=== PATIENT | male | born 1955 | race Caucasian/White ===

== ENCOUNTER 2018-03-23 08:28 | Day surgery (SDC) | payer OTHER ==
[~2018-03-23] VITALS: Ht 170.2 cm; Wt 80.8 kg
[~2018-03-23 08:28] MED LIST: Aspir 8181 MG PO; Coq-10100 MG PO; FISH OIL 1,0001 EAC1 PO; LISI5 PO; Lovastatin10 MG PO; OXYACE7.5T PO; PROM25 PO; Prinivil10 MG PO; RXOXYACE PO
--- NOTE | 2018-03-23 11:10 | NUR ---
03/23/18 1110 Susannah King IN RECOVERY WERE VIEWED BY MD VELA WHO WAS AT BEDSIDE. HE WAS FINE WITH THE BLOOD PRESSURES AND D/C TO HOME WITH NO FURTHER ORDERS. PT AWAKE AND TALKING, DENIES PAIN.
== END 2018-03-23 11:10 | disposition home or self-care (01) ==
LOC: ORSCSDS 08:28
PROVIDERS: Internal Medicine Gastroenterology
PROC: 0DBL8ZX Excision of Transverse Colon, Via Natural or Artificial Opening Endoscopic, Diagnostic (ICD-10-PCS; principal; 2018-03-23 09:45)
DX: Z12.11 Encounter for screening for malignant neoplasm of colon (principal); D12.3 Benign neoplasm of transverse colon; Z80.0 Family history of malignant neoplasm of digestive organs; K64.8 Other hemorrhoids; I10 Essential (primary) hypertension; G47.33 Obstructive sleep apnea (adult) (pediatric); I25.2 Old myocardial infarction; K21.9 Gastro-esophageal reflux disease without esophagitis; Z79.899 Other long term (current) drug therapy; Z79.82 Long term (current) use of aspirin
CPT/HCPCS: 88305; J2405; J7120

== ENCOUNTER → 2020-01-15 | Outpatient (CLI) | payer MEDICARE, OTHER | LOC: PLD 10:47 → LAB SHORT 10:47 | DX: L57.8 Other skin changes due to chronic exposure to nonionizing radiation (principal) | CPT/HCPCS: 88305 ==

== ENCOUNTER → 2022-06-21 | Outpatient (CLI) | payer OTHER | END | disposition home or self-care (01) | LOC: PLD 10:25 → LAB SHORT 10:25 → LAB 10:25 | DX: L98.8 Other specified disorders of the skin and subcutaneous tissue (principal) | CPT/HCPCS: 88305 ==